=== PATIENT | male | born 1965 | race American Indian/Alaskan Native ===

== ENCOUNTER 2016-11-16 00:14 | Emergency (ER) | payer SELFPAY ==
[2016-11-16 01:18] LABS: Eosinophils % (Auto) 2.3 % (0.0-4.3); Hematocrit 39.9 % (35.5-45.6); Hemoglobin 13.2 gm/dl (11.8-15.2); Mean Corpuscular HGB Conc 33 % (32-34); Mean Corpuscular Volume 75 fl (84-94); Platelet Count 197 K/mm3 (140-440); Red Blood Count 5.31 M/mm3 (3.65-5.03); Red Cell Distribution Width 15.5 % (13.2-15.2); White Blood Count 6.5 K/mm3 (4.5-11.0)
[2016-11-16 01:19] LABS: Mean Corpuscular Hemoglobin 25 pg (28-32)
[2016-11-16 01:27] LABS: Blood Urea Nitrogen 17 mg/dL (9-20); Calcium 9.4 mg/dL (8.4-10.2); Carbon Dioxide 26 mmol/L (22-30); Chloride 97.1 mmol/L (98-107); Glucose 169 mg/dL (75-100); Potassium 4.1 mmol/L (3.6-5.0); Sodium 135 mmol/L (137-145)
[2016-11-16 01:36] LABS: Anion Gap 16 mmol/L
--- NOTE | 2016-11-16 04:29 | XRay Report ---
FINAL REPORT PROCEDURE: XR FOOT 2V RT TECHNIQUE: RIGHT foot radiographs, AP, lateral, and oblique views. CPT 56160 HISTORY: 5th toe pain COMPARISON: No prior studies are available for comparison. FINDINGS: There is a pes planus configuration of the foot. No acute fracture or malalignment is observed. There are dorsal spurs of the talus and tarsal bones. The there is no soft tissue abnormality. IMPRESSION: There is no acute bony or soft tissue abnormality..
[2016-11-16 04:52] VITALS: BP 149/89
[2016-11-16] MEDS ORDERED: NORCO 5/325 PO ONE (05:40)
--- NOTE | 2016-11-16 05:45 | Emergency Department Report ---
HPI - General Chief Complaint: Extremity Injury, Lower Time Seen by Provider: 11/16/16 05:01 - HPI HPI: 51-year-old male with history of diabetes presents today with an open wound of his right fifth toe. Patient states that he struck his right foot 5 days ago on a dresser. Complains of worsening swelling and a wound that seems infected. Denies numbness, weakness, paresthesias. Denies bleeding. Patient is currently taking metformin and states he is compliant with his diabetes medication. Denies fever, chills, nausea, vomiting, chest pain, shortness of breath, abdominal pain. ED Past Medical Hx - Past Medical History Previous Medical History?: Yes Hx Hypertension: Yes Hx Diabetes: Yes - Surgical History Past Surgical History?: Yes Additional Surgical History: cyst rt leg, nose polyps - Social History Smoking Status: Heavy Tobacco Smoker Substance Use Type: None - Medications Home Medications: Home Medications Medication Instructions Recorded Confirmed Last Taken Type Cephalexin [Keflex] 500 mg PO Q6HR #20 capsule 11/16/16 Unknown Rx Ketorolac [Toradol] 10 mg PO Q6H PRN #20 tablet 11/16/16 Unknown Rx ED Review of Systems ROS: Stated complaint: RIGHT FOOT PAIN Other details as noted in HPI Constitutional: denies: chills, fever, malaise Eyes: denies: eye pain ENT: denies: ear pain, throat pain, congestion Respiratory: denies: cough, shortness of breath, wheezing Cardiovascular: denies: chest pain, palpitations Endocrine: no symptoms reported Gastrointestinal: denies: abdominal pain, nausea, vomiting Musculoskeletal: joint swelling, arthralgia Neurological: denies: headache, weakness, numbness, paresthesias Physical Exam - Physical Exam Vital Signs: Vital Signs 11/16/16 11/16/16 00:35 04:51 Temperature 97.7 F 98.5 F Pulse Rate 99 H 95 H Respiratory 18 20 Rate Blood Pressure 153/93 Blood Pressure 149/89 [Right] O2 Sat by Pulse 100 99 Oximetry Physical Exam: GENERAL: The patient is well-developed and well-nourished. Patient is in NAD. HEAD: Normocephalic. Atraumatic. CHEST/LUNGS: Clear to auscultation throughout. HEART/CARDIOVASCULAR: Regular rate and rhythm. No murmurs, rubs or gallops. ABDOMEN: Abdomen is soft, nontender. Bowel sounds normoactive. No guarding or rebound tenderness. RIGHT FOOT: A grade 1, 1 cm in diameter ulcer noted in between the fourth and fifth right toes. No surrounding erythema, warmth to touch noted. Positive for tenderness to palpation. Normal sensation. Peripheral pulses intact. Capillary refill less than 2 seconds. NEURO: Alert and oriented x 3. Normal gait. ED Course Vital Signs 11/16/16 11/16/16 00:35 04:51 Temperature 97.7 F 98.5 F Pulse Rate 99 H 95 H Respiratory 18 20 Rate Blood Pressure 153/93 Blood Pressure 149/89 [Right] O2 Sat by Pulse 100 99 Oximetry ED Medical Decision Making - Lab Data Result diagrams: 11/16/16 00:55 11/16/16 00:55 Vital Signs 11/16/16 11/16/16 00:35 04:51 Temperature 97.7 F 98.5 F Pulse Rate 99 H 95 H Respiratory 18 20 Rate Blood Pressure 153/93 Blood Pressure 149/89 [Right] O2 Sat by Pulse 100 99 Oximetry Lab Results 11/16/16 11/16/16 Range/Units 00:55 00:55 WBC 6.5 (4.5-11.0) K/mm3 RBC 5.31 H (3.65-5.03) M/mm3 Hgb 13.2 (11.8-15.2) gm/dl Hct 39.9 (35.5-45.6) % MCV 75 L (84-94) fl MCH 25 L (28-32) pg MCHC 33 (32-34) % RDW 15.5 H (13.2-15.2) % Plt Count 197 (140-440) K/mm3 Lymph % (Auto) 27.2 (13.4-35.0) % [place] % (Auto) 9.7 H (0.0-7.3) % Eos % (Auto) 2.3 (0.0-4.3) % Baso % (Auto) 1.0 (0.0-1.8) % Lymph # 1.8 (1.2-5.4) K/mm3 [place]ether # 0.6 (0.0-0.8) K/mm3 Eos # 0.1 (0.0-0.4) K/mm3 Baso # 0.1 (0.0-0.1) K/mm3 Seg Neutrophils % 59.8 (40.0-70.0) % Seg Neutrophils # 3.9 (1.8-7.7) K/mm3 Sodium 135 L (137-145) mmol/L Potassium 4.1 (3.6-5.0) mmol/L Chloride 97.1 L (98-107) mmol/L Carbon Dioxide 26 (22-30) mmol/L Anion Gap 16 mmol/L BUN 17 (9-20) mg/dL Creatinine 1.0 (0.8-1.5) mg/dL Estimated GFR > 60 ml/min BUN/Creatinine Ratio 17.00 % Glucose 169 H (75-100) mg/dL Calcium 9.4 (8.4-10.2) mg/dL - Radiology Data Radiology results: report reviewed Right foot x-ray: There is a pes planus configuration of the foot. No acute fracture or malalignment is observed. There are dorsal spurs of the talus and tarsal bones. There is no soft tissue abnormality. - Medical Decision Making 51-year-old male presents today with a grade 1 ulcer between his fourth and fifth right toes. His lab work reveals a blood glucose levels of 169. Patient was given [place] and reports some pain relief. Wound was cleaned and saline gauze dressing was applied. Wound care instructions have been provided. Consulted with Dr. Tapia. Patient is in no acute distress at this time. He will be discharged home and is encouraged to follow up with a primary care provider. He will be sent home on Keflex and Toradol and is encouraged to return to the emergency room for any worsening symptoms. Critical care attestation.: If time is entered above; I have spent that time in minutes in the direct care of this critically ill patient, excluding procedure time. ED Disposition Clinical Impression: Diabetic foot ulcer Qualifiers: Diabetes mellitus type: type 2 Laterality: right Qualified Code(s): E11.621 - Type 2 diabetes mellitus with foot ulcer; L97.519 - Non-pressure chronic ulcer of other part of right foot with unspecified severity Disposition: DISCHARGED TO HOME OR SELFCARE Is pt being admited?: No Does the pt Need Aspirin: No Condition: Stable Instructions: Diabetic Foot Care (ED), Diabetic Foot Ulcers (ED), Acute Wound Care (ED) Additional Instructions: Follow-up with primary care provider. Return to the emergency department if symptoms worsen. Prescriptions: Cephalexin [Keflex] 500 mg PO Q6HR #20 capsule Ketorolac [Toradol] 10 mg PO Q6H PRN #20 tablet PRN Reason: Pain Referrals: PRIMARY CARE,MD [Primary Care Provider] - 3-5 Days [facility] [Outside] - 3-5 Days [facility] [Outside] - 3-5 Days Forms: Work/School Release Form(ED) Time of Disposition: 05:52
== END 2016-11-16 06:45 | disposition home or self-care (01) ==
LOC: ED 00:14
DX: E11.621 Type 2 diabetes mellitus with foot ulcer (principal); L97.519 Non-pressure chronic ulcer of other part of right foot with unspecified severity; I10 Essential (primary) hypertension; Z72.0 Tobacco use; Z98.890 Other specified postprocedural states
CPT/HCPCS: 36415; 80048; 85025

== ENCOUNTER 2018-07-07 12:07 | Emergency (ER) | payer SELFPAY ==
[2018-07-07 12:31] VITALS: BP 155/98
--- NOTE | 2018-07-07 14:17 | Emergency Department Report ---
ED Recheck HPI - General Chief Complaint: Medical Clearance Stated Complaint: MEDS REFILL Time Seen by Provider: 07/07/18 13:56 Source: patient Mode of arrival: Ambulatory Limitations: No Limitations - History of Present Illness Initial Comments: This is a 53-year-old -[place] male presents for medication refills. Past medical history of diabetes type II and hypertension. Patient states he ran out of medication 2 weeks ago. He is currently going home remedies and change diet to control comorbidities. Patient states when he woke up this morning and check blood glucose which was 152. Patient is requesting refills of medication and referrals to primary care doctor. Patient denies nausea or vomiting, chest pain, palpitations, shortness of breath, peripheral edema. MD Complaint: medication refill request Onset/Timin -: week(s) Returns Today for: request for prescription Symptoms Since Prior Visit: no new symptoms Context: ran out of medication Associated Symptoms: none - Related Data Previous Rx's Medication Instructions Recorded Last Taken Type Ketorolac [Toradol] 10 mg PO Q6H PRN #20 tablet 11/16/16 Unknown Rx cephALEXin [Keflex] 500 mg PO Q6HR #20 capsule 11/16/16 Unknown Rx AtorvaSTATin [Lipitor] 40 mg PO QHS #30 tab 07/07/18 Unknown Rx Cetirizine HCl [Zyrtec] 10 mg PO DAILY #30 tablet 07/07/18 Unknown Rx Gabapentin [Neurontin] 300 mg PO QHS #30 cap 07/07/18 Unknown Rx Lisinopril [Prinivil] 5 mg PO DAILY #30 tablet 07/07/18 Unknown Rx Metoprolol Tartrate 25 mg PO BID #60 tablet 07/07/18 Unknown Rx metFORMIN [Glucophage] 500 mg PO QDAY #30 tab 07/07/18 Unknown Rx Allergies Allergy/AdvReac Type Severity Reaction Status Date / Time No Known Allergies Allergy Verified 07/07/18 12:29 ED Review of Systems ROS: Stated complaint: MEDS REFILL Other details as noted in HPI Constitutional: denies: chills, fever Respiratory: denies: cough, shortness of breath, wheezing Cardiovascular: denies: chest pain, palpitations Endocrine: no symptoms reported Gastrointestinal: denies: abdominal pain, nausea, diarrhea Neurological: denies: headache, weakness, paresthesias Psychiatric: denies: anxiety, depression ED Past Medical Hx - Past Medical History Hx Hypertension: Yes Hx Diabetes: Yes - Surgical History Additional Surgical History: cyst rt leg, nose polyps - Social History Smoking Status: Never Smoker Substance Use Type: None - Medications Home Medications: Home Medications Medication Instructions Recorded Confirmed Last Taken Type Ketorolac [Toradol] 10 mg PO Q6H PRN #20 tablet 11/16/16 Unknown Rx cephALEXin [Keflex] 500 mg PO Q6HR #20 capsule 11/16/16 Unknown Rx AtorvaSTATin [Lipitor] 40 mg PO QHS #30 tab 07/07/18 Unknown Rx Cetirizine HCl [Zyrtec] 10 mg PO DAILY #30 tablet 07/07/18 Unknown Rx Gabapentin [Neurontin] 300 mg PO QHS #30 cap 07/07/18 Unknown Rx Lisinopril [Prinivil] 5 mg PO DAILY #30 tablet 07/07/18 Unknown Rx Metoprolol Tartrate 25 mg PO BID #60 tablet 07/07/18 Unknown Rx metFORMIN [Glucophage] 500 mg PO QDAY #30 tab 07/07/18 Unknown Rx ED Physical Exam - General Limitations: No Limitations General appearance: alert, in no apparent distress - Respiratory Respiratory exam: Present: normal lung sounds bilaterally. Absent: respiratory distress - Cardiovascular Cardiovascular Exam: Present: regular rate, normal rhythm. Absent: systolic murmur, diastolic murmur, rubs, gallop - GI/Abdominal GI/Abdominal exam: Present: soft, normal bowel sounds - Neurological Exam Neurological exam: Present: alert, oriented X3 - Psychiatric Psychiatric exam: Present: normal affect, normal mood - Skin Skin exam: Present: warm, dry, intact, normal color. Absent: rash ED Course Vital Signs 07/07/18 12:29 Temperature 99.1 F Pulse Rate 86 Respiratory 20 Rate Blood Pressure 155/98 O2 Sat by Pulse 100 Oximetry ED Recheck MDM - Differential Diagnosis Prescription Refill(s) - Medical Decision Making Patient was examined by me in fast track. Vitals are stable and patient is in no acute distress. Refilled medications and and given referral to [facility] for continuance of care. Plan discussed with patient to discharge home and treat outpatient. He agrees with ER plan. Patient discharged home in stable condition. Follow up with PCP in 2-3 days. Critical care attestation.: If time is entered above; I have spent that time in minutes in the direct care of this critically ill patient, excluding procedure time. ED Disposition Clinical Impression: Neuropathy Hypertension Qualifiers: Hypertension type: essential hypertension Qualified Code(s): I10 - Essential ( primary) hypertension Diabetes mellitus type 2, controlled, without complications Qualifiers: Diabetes mellitus termite technician insulin use: without termite technician use Qualified Code(s ): E11.9 - Type 2 diabetes mellitus without complications Allergic rhinitis Qualifiers: Allergic rhinitis trigger: unspecified Allergic rhinitis seasonality: seasonal Qualified Code(s): J30.2 - Other seasonal allergic rhinitis Disposition: DC- TO HOME OR SELFCARE Is pt being admited?: No Does the pt Need Aspirin: No Condition: Stable Instructions: Hypertension (ED), Diabetes Mellitus Type 2 in Adults (ED) Additional Instructions: Follow-up with Medical Clinic for Continuance of Care and Further Refills. Prescriptions: AtorvaSTATin [Lipitor] 40 mg PO QHS #30 tab Gabapentin [Neurontin] 300 mg PO QHS #30 cap Cetirizine HCl [Zyrtec] 10 mg PO DAILY #30 tablet Lisinopril [Prinivil] 5 mg PO DAILY #30 tablet metFORMIN [Glucophage] 500 mg PO QDAY #30 tab Metoprolol Tartrate 25 mg PO BID #60 tablet Referrals: [facility] [place] [Outside] - 3-5 Days [facility] [Outside] - 3-5 Days [facility] [Outside] - 3-5 Days Time of Disposition: 14:22 Print Language: PUERTO RICAN
== END 2018-07-07 14:46 | disposition home or self-care (01) ==
LOC: ED 12:07
DX: E11.9 Type 2 diabetes mellitus without complications (principal); G62.9 Polyneuropathy, unspecified; I10 Essential (primary) hypertension; J30.9 Allergic rhinitis, unspecified; Z76.0 Encounter for issue of repeat prescription
CPT/HCPCS: 99281

== ENCOUNTER 2019-09-15 23:44 | Emergency (ER) | payer SELFPAY ==
[2019-09-15 23:54] VITALS: BP 126/88
[2019-09-16 02:15] LABS: Hematocrit 42.8 % (35.5-45.6); Mean Corpuscular HGB Conc 33 % (32-34); Mean Corpuscular Volume 78 fl (84-94); Platelet Count 206 K/mm3 (140-440); Red Cell Distribution Width 15.9 % (13.2-15.2)
--- NOTE | 2019-09-16 02:26 | Emergency Department Report ---
- General Chief Complaint: Skin/Abscess/Foreign Body Stated Complaint: POSS INFECTION ON L BIG TOE Time Seen by Provider: 09/16/19 01:37 Source: patient Mode of arrival: Ambulatory Limitations: No Limitations - History of Present Illness Initial Comments: Mr. Franz is a 54-year-old -[place] male with a history of diabetes type 2 and recurrent diabetic ulcer to left great toe. Patient followed up PCP for same. Patient is status post skin graft same 6 months ago no pain swelling and erythema to left great toe, Pt states he cannot see surgery tomorrow next week. symptoms include pain, purulent drainage, and eythema. There is no fever, chills ,or nausea vomiting. Onset/Timin -: month(s) Extremity Location: Left: Foot (great toe ulcer) Place: home Patient Tetanus UTD: Yes Associated Symptoms: pain. denies: nausea/vomiting, fever - Related Data Previous Rx's Medication Instructions Recorded Last Taken Type Ketorolac [Toradol] 10 mg PO Q6H PRN #20 tablet 11/16/16 Unknown Rx cephALEXin [Keflex] 500 mg PO Q6HR #20 capsule 11/16/16 Unknown Rx AtorvaSTATin [Lipitor] 40 mg PO QHS #30 tab 07/07/18 Unknown Rx Cetirizine HCl [Zyrtec 10mg tab] 10 mg PO DAILY #30 tablet 07/07/18 Unknown Rx Gabapentin 300 mg PO QHS #30 cap 07/07/18 Unknown Rx Lisinopril [Prinivil] 5 mg PO DAILY #30 tablet 07/07/18 Unknown Rx Metoprolol Tartrate 25 mg PO BID #60 tablet 07/07/18 Unknown Rx metFORMIN [Glucophage] 500 mg PO QDAY #30 tab 07/07/18 Unknown Rx Clindamycin [Clindamycin CAP] 300 mg PO Q6H 10 Days #40 capsule 09/16/19 Unknown Rx traMADol [Ultram] 50 mg PO Q6HR PRN #12 tablet 09/16/19 Unknown Rx Allergies Allergy/AdvReac Type Severity Reaction Status Date / Time No Known Allergies Allergy Verified 07/07/18 12:29 ED Review of Systems ROS: Stated complaint: POSS INFECTION ON L BIG TOE Other details as noted in HPI Constitutional: denies: chills, fever Eyes: denies: eye pain, eye discharge, vision change ENT: denies: ear pain, throat pain Respiratory: denies: cough, shortness of breath, wheezing Cardiovascular: denies: chest pain, palpitations Endocrine: no symptoms reported Gastrointestinal: denies: abdominal pain, nausea, diarrhea Genitourinary: denies: urgency, dysuria Musculoskeletal: other (toe ulcer left great ). denies: back pain, joint swelling, arthralgia Skin: denies: rash, lesions Neurological: denies: headache, weakness, paresthesias Psychiatric: denies: anxiety, depression Hematological/Lymphatic: denies: easy bleeding, easy bruising ED Past Medical Hx - Past Medical History Previous Medical History?: Yes Hx Hypertension: Yes Hx Diabetes: Yes - Surgical History Past Surgical History?: Yes Additional Surgical History: cyst rt leg, nose polyps - Social History Smoking Status: Former Smoker Substance Use Type: Alcohol, Marijuana - Medications Home Medications: Home Medications Medication Instructions Recorded Confirmed Last Taken Type Ketorolac [Toradol] 10 mg PO Q6H PRN #20 tablet 11/16/16 Unknown Rx cephALEXin [Keflex] 500 mg PO Q6HR #20 capsule 11/16/16 Unknown Rx AtorvaSTATin [Lipitor] 40 mg PO QHS #30 tab 07/07/18 Unknown Rx Cetirizine HCl [Zyrtec 10mg tab] 10 mg PO DAILY #30 tablet 07/07/18 Unknown Rx Gabapentin 300 mg PO QHS #30 cap 07/07/18 Unknown Rx Lisinopril [Prinivil] 5 mg PO DAILY #30 tablet 07/07/18 Unknown Rx Metoprolol Tartrate 25 mg PO BID #60 tablet 07/07/18 Unknown Rx metFORMIN [Glucophage] 500 mg PO QDAY #30 tab 07/07/18 Unknown Rx Clindamycin [Clindamycin CAP] 300 mg PO Q6H 10 Days #40 capsule 09/16/19 Unknown Rx traMADol [Ultram] 50 mg PO Q6HR PRN #12 tablet 09/16/19 Unknown Rx ED Physical Exam - General Limitations: No Limitations General appearance: alert, in no apparent distress - Head Head exam: Present: atraumatic, normocephalic - Eye Eye exam: Present: normal appearance - ENT ENT exam: Present: mucous membranes moist - Neck Neck exam: Present: normal inspection - Respiratory Respiratory exam: Present: normal lung sounds bilaterally. Absent: respiratory distress - Cardiovascular Cardiovascular Exam: Present: regular rate, normal rhythm, normal heart sounds. Absent: systolic murmur, diastolic murmur, rubs, gallop - GI/Abdominal GI/Abdominal exam: Present: soft, normal bowel sounds - Rectal Rectal exam: Present: deferred - Extremities Exam Extremities exam: Present: full ROM, tenderness (left great toe erythem purulent drainage at stasis ucler ), normal capillary refill, joint swelling. Absent: pedal edema - Expanded Lower Extremity Exam Left Foot/Toe exam: Present: full ROM, tenderness, swelling, ecchymosis, erythema. Absent: abrasion, laceration, deformity, crepidus, dislocation, amputation, puncture wound, foreign body, calcaneal tenderness, tenderness at base of 5th metatarsal, nail avulsion, subungual hematoma Neuro vascular tendon exam: Absent: pulse deficit, motor deficit, sensory deficit, tendon deficit Gait: Positive: observed and limited by pain - Back Exam Back exam: Present: normal inspection, full ROM - Neurological Exam Neurological exam: Present: alert, oriented X3 - Psychiatric Psychiatric exam: Present: normal affect, normal mood - Skin Skin exam: Present: warm, dry, intact, normal color. Absent: rash ED Course Vital Signs 09/15/19 23:52 Temperature 98.3 F Pulse Rate 95 H Respiratory 20 Rate Blood Pressure 126/88 O2 Sat by Pulse 96 Oximetry ED Medical Decision Making - Lab Data Result diagrams: 09/16/19 01:55 09/16/19 01:55 - Radiology Data Radiology results: report reviewed, image reviewed Ordering Physician: GENNARO SHOEMAKER NP Date of Service: 09/16/19 Procedure(s): XR foot 3+V LT Accession Number(s): [id number] cc: GENNARO SHOEMAKER NP Fluoro Time In Minutes: LEFT FOOT 3 VIEW(S) INDICATION / CLINICAL INFORMATION: diabetic ulcer great toe r/o osteo COMPARISON: None available. FINDINGS: BONES / JOINT(S): No acute fracture or subluxation. Mild to moderate midfoot degenerative arthrosis. No definite osseous destruction of the great toe. SOFT TISSUES: Soft tissue ulcer on the medial aspect of the great toe with surrounding soft tissue swelling. No definite soft tissue gas. Vascular calcifications characteristic of diabetes and/or renal failure. ADDITIONAL FINDINGS: None. IMPRESSION: 1. Soft tissue ulcer of the great toe without definite radiographic evidence for osteomyelitis. 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 follow up with pcp, and current general surgery for follow tx of foot. Take all medications as prescribed. return to ed if symptoms worsen. pt verbalized agreement and understanding of discharge plan. Critical care attestation.: If time is entered above; I have spent that time in minutes in the direct care of this critically ill patient, excluding procedure time. ED Disposition Clinical Impression: Cellulitis of toe of left foot Diabetic foot ulcer Qualifiers: Diabetic foot ulcer location: toe Diabetes mellitus type: type 2 Laterality: left Non-pressure ulcer stage: limited to breakdown of skin Qualified Code(s): E11.621 - Type 2 diabetes mellitus with foot ulcer; L97.521 - Non-pressure chronic ulcer of other part of left foot limited to breakdown of skin Disposition: DC-01 TO HOME OR SELFCARE Is pt being admited?: No Does the pt Need Aspirin: No Condition: Stable Instructions: Diabetes Mellitus Type 2 in Adults (ED), Cellulitis (ED), Diabetic Foot Ulcers (ED), Diabetic Foot Care (ED) Additional Instructions: Follow up with [facility] [address] [place] [address] in 1-2 days Prescriptions: Clindamycin [Clindamycin CAP] 300 mg PO Q6H 10 Days #40 capsule traMADol [Ultram] 50 mg PO Q6HR PRN #12 tablet PRN Reason: Pain Referrals: ISELA JULIEN DPM [Staff Physician] - 3-5 Days Forms: Work/School Release Form(ED) Time of Disposition: 03:47
[2019-09-16 02:28] LABS: BUN/Creatinine Ratio 16; Blood Urea Nitrogen 14 mg/dL (9-20); Calcium 9.6 mg/dL (8.4-10.2); Hemolysis Index 11
--- NOTE | 2019-09-16 02:51 | XRay Report ---
LEFT FOOT 3 VIEW(S) INDICATION / CLINICAL INFORMATION: diabetic ulcer great toe r/o osteo COMPARISON: None available. FINDINGS: BONES / JOINT(S): No acute fracture or subluxation. Mild to moderate midfoot degenerative arthrosis. No definite osseous destruction of the great toe. SOFT TISSUES: Soft tissue ulcer on the medial aspect of the great toe with surrounding soft tissue sw elling. No definite soft tissue gas. Vascular calcifications characteristic of diabetes and/or renal failure. ADDITIONAL FINDINGS: None. IMPRESSION: 1. Soft tissue ulcer of the great toe without definite radiographic evidence for osteomyelitis. Signer Name: Marge Stroud MD Signed: 09/16/2019 2:46 AM Workstation Name: [id number]
[2019-09-16] MEDS ORDERED: KETOROLAC 30 MG/1 ML INJ IV ONE (02:54)
== END 2019-09-16 04:25 | disposition home or self-care (01) ==
LOC: ED 23:44
DX: E11.621 Type 2 diabetes mellitus with foot ulcer (principal); L97.529 Non-pressure chronic ulcer of other part of left foot with unspecified severity; L03.032 Cellulitis of left toe; F12.10 Cannabis abuse, uncomplicated; I10 Essential (primary) hypertension; Z79.84 Long term (current) use of oral hypoglycemic drugs; Z87.891 Personal history of nicotine dependence
CPT/HCPCS: 36415; 73630; 80048; 82140; 82962; 85027; 86140; 96374; 96375; 99284; J1885